=== PATIENT | female | born 1980 | race Caucasian/White ===

== ENCOUNTER 2017-06-15 19:37 | Emergency (ER) | payer BC, OTHER ==
[2017-06-15 20:46] LABS: BASO # 0.1 10^3/uL (0.0-0.2); BASO % 0.9 % (0.0-1.0); EOS # 0.5 10^3/uL (0.0-0.50); HEMATOCRIT 45.4 % (36.0-47.0); HEMOGLOBIN 15.4 g/dl (12.0-16.0); IMMATURE GRANULOCYTE % 0.2 % (0-0); LYMPH # 1.5 10^3/uL (1.5-4.5); LYMPH % 26.5 % (24.0-44.0); MEAN CORPUSCULAR HEMOGLOBIN 30.9 pg (27.0-33.0); MEAN CORPUSCULAR HGB CONC 33.9 g/dl (32.0-36.5); MEAN CORPUSCULAR VOLUME 91.2 fl (80.0-96.0); MONO # 0.5 10^3/uL (0.0-0.8); MONO % 8.8 % (0.0-5.0); NEUTROPHILS # 3.2 10^3/uL (1.8-7.7); NEUTROPHILS % 55.6 % (36.0-66.0); PLATELET COUNT, AUTOMATED 307 10^3/uL (150-450); RED BLOOD COUNT 4.98 10^6/uL (4.00-5.40); RED CELL DISTRIBUTION WIDTH 12.1 % (11.5-14.5); WHITE BLOOD COUNT 5.8 10^3/uL (4.0-10.0)
[2017-06-15 20:49] LABS: KETONE, URINE AUTO RFX NEGATIVE (NEGATIVE); MUCUS, URINE RFX SMALL (NEGATIVE); NITRITE, URINE AUTO RFX NEGATIVE (NEGATIVE); RBC, URINE AUTO RFX 6 /HPF (0-3); SPECIFIC GRAVITY UR AUTO RFX 1.027 (1.002-1.035); SQUAM EPITHELIAL CELL UR AURFX 2 /HPF (0-6)
[2017-06-15 20:52] LABS: LEUKOCYTE ESTERASE UR AUTO RFX 2+ (NEGATIVE); WBC, URINE AUTO RFX 41 /HPF (0-3)
[2017-06-15 21:09] LABS: ANION GAP 4 MEQ/L (8-16); BLOOD UREA NITROGEN 14 MG/DL (7-18); CALCIUM LEVEL 8.8 MG/DL (8.5-10.1); CARBON DIOXIDE LEVEL 30 MEQ/L (21-32); CHLORIDE LEVEL 106 MEQ/L (98-107); CREATININE FOR GFR 0.74 MG/DL (0.55-1.30); GLOMERULAR FILTRATION RATE > 60.0 (>60); GLUCOSE, FASTING 89 MG/DL (70-100); POTASSIUM SERUM 3.9 MEQ/L (3.5-5.1); SODIUM LEVEL 140 MEQ/L (136-145)
[2017-06-15] MEDS: CIPROFLOXACIN 500 MG TAB PO (21:33)
[2017-06-15] MEDS: metroNIDAZOLE (FLAGYL) 500 MG TAB PO (21:33)
[2017-06-15 23:07] LABS: CHLAMYDIA DNA AMPLIFICATION NEGATIVE (NEGATIVE); GC DNA AMPLIFICATION NEGATIVE (NEGATIVE)
== END 2017-06-15 21:41 | disposition home or self-care (01) ==
LOC: M ED 19:37
DX: N30.91 Cystitis, unspecified with hematuria (principal); N76.0 Acute vaginitis; Z88.0 Allergy status to penicillin; Z87.891 Personal history of nicotine dependence
CPT/HCPCS: 80048

== ENCOUNTER 2017-10-30 12:42 | Emergency (ER) | payer BC ==
[2017-10-30] MEDS: IPRATROPIUM 0.5MG/ALBUTEROL 2.5MG INH SOL UD 3ML (DUONEB)(J7620) NEB ×6 (13:58→16:10)
[2017-10-30] MEDS: methylPREDNISolone INJ 125 MG/2 ML VIAL (J2930) IV (14:09)
[2017-10-30 14:19] LABS: BASO # 0.1 10^3/uL (0.0-0.2); EOS # 0.7 10^3/uL (0.0-0.50); EOS % 15.1 % (0.0-3.0); HEMATOCRIT 43.6 % (36.0-47.0); HEMOGLOBIN 15.1 g/dl (12.0-15.5); IMMATURE GRANULOCYTE % 0.2 % (0-3.0); LYMPH # 1.3 10^3/uL (1.5-4.5); LYMPH % 27.3 % (24.0-44.0); MEAN CORPUSCULAR HEMOGLOBIN 30.4 pg (27.0-33.0); MEAN CORPUSCULAR HGB CONC 34.6 g/dl (32.0-36.5); MEAN CORPUSCULAR VOLUME 87.7 fl (80.0-96.0); MONO # 0.5 10^3/uL (0.0-0.8); MONO % 9.2 % (0.0-5.0); NEUTROPHILS # 2.3 10^3/uL (1.8-7.7); NEUTROPHILS % 47.2 % (36.0-66.0); PLATELET COUNT, AUTOMATED 276 10^3/uL (150-450); RED BLOOD COUNT 4.97 10^6/uL (4.00-5.40); RED CELL DISTRIBUTION WIDTH 12.3 % (11.5-14.5); WHITE BLOOD COUNT 4.9 10^3/uL (4.0-10.0)
[2017-10-30 14:59] LABS: ANION GAP 9 MEQ/L (8-16); BLOOD UREA NITROGEN 11 MG/DL (7-18); CALCIUM LEVEL 8.4 MG/DL (8.5-10.1); CARBON DIOXIDE LEVEL 24 MEQ/L (21-32); CHLORIDE LEVEL 108 MEQ/L (98-107); CREATININE FOR GFR 0.71 MG/DL (0.55-1.30); GLOMERULAR FILTRATION RATE > 60.0 (>60); GLUCOSE, FASTING 83 MG/DL (70-100); POTASSIUM SERUM 4.2 MEQ/L (3.5-5.1); SODIUM LEVEL 141 MEQ/L (136-145)
== END 2017-10-30 17:35 | disposition home or self-care (01) ==
LOC: M ED 12:42
DX: J45.901 Unspecified asthma with (acute) exacerbation (principal); Z87.891 Personal history of nicotine dependence; Z88.0 Allergy status to penicillin
CPT/HCPCS: J2930

== ENCOUNTER 2018-04-17 23:38 | Inpatient (IN) | payer BC ==
[~2018-04-17] VITALS: Ht 175.3 cm; Wt 73.0 kg
[~2018-04-17 23:38] MED LIST: ALLE180T33 PO; CIPR-249 PO; FLAG500T PO; PRED20TA PO; VENTAER INH
[2018-04-17] MEDS ORDERED: IBUP1TAB6 PO (23:46)
[2018-04-17] MEDS ORDERED: MUCI600T31 PO (23:46)
[2018-04-18] MEDS ORDERED: dexameTHASONE 20 MG/5 ML VIAL (J1100) IV ONE
[2018-04-18] MEDS ORDERED: MAG SULF 1GM/100ML (MAG RUN) 1 GM in APPROPRIATE DILUENT 1 EA IV ONE ×3 (02:45→04:45)
[2018-04-18] MEDS ORDERED: ALBUTEROL SULFATE 2.5 MG/0.5 ML INH NEB SOLN NEB ONE ×2 (05:00)
[2018-04-18] MEDS ORDERED: IPRATROPIUM 0.02% SOLN 0.5MG/2.5 ML NEB INH ONE (05:00)
[2018-04-18 05:14] LABS: BASO # 0.1 10^3/uL (0.0-0.2); BASO % 0.5 % (0.0-1.0); EOS # 0.7 10^3/uL (0.0-0.50); HEMATOCRIT 46.7 % (36.0-47.0); HEMOGLOBIN 15.7 g/dl (12.0-15.5); LYMPH # 1.5 10^3/uL (1.5-4.5); LYMPH % 13.7 % (24.0-44.0); MEAN CORPUSCULAR HEMOGLOBIN 30.7 pg (27.0-33.0); MEAN CORPUSCULAR HGB CONC 33.6 g/dl (32.0-36.5); MEAN CORPUSCULAR VOLUME 91.2 fl (80.0-96.0); MONO # 0.7 10^3/uL (0.0-0.8); MONO % 6.3 % (0.0-5.0); NEUTROPHILS # 8.1 10^3/uL (1.8-7.7); NEUTROPHILS % 73.3 % (36.0-66.0); PLATELET COUNT, AUTOMATED 356 10^3/uL (150-450); RED BLOOD COUNT 5.12 10^6/uL (4.00-5.40); WHITE BLOOD COUNT 11.1 10^3/uL (4.0-10.0)
[2018-04-18 05:21] LABS: BLOOD UREA NITROGEN 10 MG/DL (7-18); CALCIUM LEVEL 9.1 MG/DL (8.5-10.1); CARBON DIOXIDE LEVEL 25 MEQ/L (21-32); CHLORIDE LEVEL 106 MEQ/L (98-107); CREATININE FOR GFR 0.73 MG/DL (0.55-1.30); GLOMERULAR FILTRATION RATE > 60.0 (>60); GLUCOSE, FASTING 107 MG/DL (70-100); POTASSIUM SERUM 4.3 MEQ/L (3.5-5.1); SODIUM LEVEL 140 MEQ/L (136-145)
[2018-04-18 05:22] LABS: ABG BASE EXCESS -0.7 (-2.0-2.0); ABG HCO3 22.6 MEQ/L (22.0-26.0); ABG PARTIAL PRESSURE CO2 33.6 mmHg (35.0-45.0); ABG PARTIAL PRESSURE O2 75.8 mmHg (75.0-100.0); ABG STANDARD HCO3 23.9 MEQ/L (22.0-26.0); ABG TOTAL CO2 23.6 MEQ/L (22.0-29.0); ABG pH (ARTERIAL) 7.445 UNITS (7.350-7.450)
[2018-04-18] MEDS ORDERED: ALLE180T33 PO (05:22)
[2018-04-18] MEDS ORDERED: MUCI600T31 PO (05:22)
[2018-04-18] MEDS ORDERED: IBUPOTC PO (05:22)
[2018-04-18] MEDS ORDERED: ISOVUE-370 76% 100ML VIAL (Q9967) As Ordered ONE (05:29)
[2018-04-18 06:00] VITALS: BP 115/81
--- NOTE | 2018-04-18 06:22 | REPVR ---
EXAM: CT Angiography Chest With Intravenous Contrast EXAM DATE/TIME: 04/18/2018 5:24 AM CLINICAL HISTORY: 38 years old, female; Pain and signs and symptoms; Shortness of breath; Chest pain; Type not specified; Additional info: Dysp TECHNIQUE: Axial computed tomographic angiography images of the chest with intravenous contrast using CT angiography protocol. All CT scans at this facility use at least one of these dose optimization techniques: automated exposure control; mA and/or kV adjustment per patient size (includes targeted exams where dose is matched to clinical indication); or iterative reconstruction. Coronal and sagittal reformatted images were created and reviewed. MIP reconstructed images were created and reviewed. CONTRAST: 75 ml of iso administered intravenously. COMPARISON: CR Chest, 2 view PA, Lat 04/18/2018 12:47 AM FINDINGS: Pulmonary arteries: The pulmonary arteries are not enlarged. No filling defects are seen to indicate an acute pulmonary embolism. Aorta: There is no thoracic aortic aneurysm or evidence of dissection. Lungs: Mild bronchial wall thickening is seen diffusely. A small amount of mucus plugging is seen in the bilateral lower lobes.There is no significant consolidation. There is a peripheral 4 mm nodule in the right upper lobe (image 31 of series 401) and a 3 mm nodule right upper lobe (image 20). A few additional 2-3 mm subpleural nodules are also identified. Pleural space: There are no pleural effusions present. Heart: The heart is normal in size. Mediastinum: There is soft tissue density in the anterior superior mediastinum, consistent with residual thymic tissue. Upper abdomen: The visualized upper abdomen structures are unremarkable. Lymph nodes: No lymphadenopathy is seen. Bones/joints: Unremarkable. No acute fracture. Soft tissues: Unremarkable. IMPRESSION: 1. No evidence of acute pulmonary embolism. 2. Mild diffuse bronchial wall thickening and a few sites of mucus plugging, consistent with bronchitis which may be acute or chronic. 3. Small nonspecific peripheral nodules measuring up to 4 mm. For low risk patients, no routine follow-up is needed. For high risk patients, optional CT at 12 months is recommended. Electronically signed by: Alysha Walton On 04/18/2018 06:22:20 AM
[2018-04-18] MEDS ORDERED: ACETAMINOPHEN TAB 650MG DOSE (2X325MG) PO PRN (06:30)
[2018-04-18] MEDS ORDERED: IPRATROPIUM 0.5MG/ALBUTEROL 2.5MG INH SOL UD 3ML (DUONEB)(J7620) NEB PRN (06:30)
[2018-04-18] MEDS ORDERED: PRED20TA PO (06:33)
--- NOTE | 2018-04-18 06:33 | HPEPDOC ---
General Date of Admission Chief Complaint The patient is a 38-year-old female admitted with a reason for visit of SOB. Source: Patient History of Present Illness 38-year-old female recently diagnosed with asthma. Patient has no significant past history. Today she states that she became short of breath may have been triggered by the cold. She uses a Ventolin inhaler and Mucinex. She was a smoker of 6 years one pack per week. Occasional swelling in her legs. She denies fevers, chills, nausea, vomiting, diarrhea or constipation. In the ED she was given 20 mg of Decadron 3 g of magnesium up-year-old treatments ABG was done and she was found to have an AA gradient CT angiogram of the chest was done. Official read pending, but I did not see any obstruction and the vessels Home Medications Scheduled Guaifenesin (Mucinex) 600 Mg Tab, 600 MG PO DAILY, (Reported) Scheduled PRN Albuterol Sulfate (Ventolin Hfa) 108 Mcg/Act Aer, 2 PUFFS INH QID PRN for SHORTNESS OF BREATH, (Reported) Fexofenadine Hydrochloride (Rosa Allergy) 180 Mg Tab, 180 MG PO DAILY PRN for ALLERGY SYMPTOMS, (Reported) Ibuprofen (Ibuprofen) 200 Mg Tab, 600 MG PO Q6H PRN for PAIN, (Reported) Allergies Coded Allergies: Penicillins (Verified Allergy, Unknown, 06/15/17) Social History * Smoker: former Smoker Review of Systems Constitutional: Denies: Chills, Fever, Night Sweats Eyes: Denies: Pain, Vision change ENT: Denies: Head Aches, Ear Pain, Dysphagia Skin: Denies: Rash, Lesions, Breakdown Pulmonary: Reports: Dyspnea; Denies: Cough, Pleuritic Chest Pain Cardiovascular: Denies: Chest Pain, Palpitations, Orthopnea, Paroxysmal Noc. Dyspnea, Lt Headedness Gastrointestinal: Denies: Nausea, Vomiting, Abdominal Pain, Diarrhea Genitourinary: Denies: Dysuria, Frequency, Incontinence, Retention Hematologic: Denies: Bruising, Bleeding Excessively Musculoskeletal: Denies: Neck Pain, Back Pain, Joint Pain, Muscle Pain, Spasms Neurological: Denies: Weakness, Numbness, Change in speech, Confusion Psych: Reports: Mood Normal; Denies: Depression, Memory Issues Physical Examination General Exam: Positive: Alert, Cooperative, No Acute Distress Eye Exam: Positive: PERRLA, Conjunctiva & lids normal, EOMI; Negative: Sclera icteric ENT Exam: Positive: Atraumatic, Mucous membr. moist/pink, Pharynx Normal Neck Exam: Positive: Supple; Negative: JVD, thyromegaly Chest Exam: Positive: Normal air movement, Rales, Rhonchi, Wheezing Heart Exam: Positive: Tachycardic, Regular Rhythm, Normal S1, Normal S2; Negative: Murmurs, Rubs Telemetry: Positive: No significant arrhythmia Abdomen Exam: Positive: Normal bowel sounds, Soft; Negative: Tenderness, Hepatospenomegaly Extremity Exam: Positive: Normal pulses; Negative: Clubbing, Cyanosis, Edema Skin Exam: Positive: Nl turgor and temperature; Negative: Breakdown, Lesion Neuro Exam: Positive: Normal Gait, Normal Speech, Cranial Nerves 3-12 NL, Reflexes 2+ Psych Exam: Positive: Mental status NL, Mood NL, Oriented x 3 Vital Signs Vital Signs Date Time Temp Pulse Resp B/P (MAP) Pulse Ox O2 Delivery O2 Flow Rate FiO2 04/18/18 03:08 100 91 04/18/18 03:00 115/69 (84) 04/18/18 02:53 18 04/18/18 00:25 Room Air Laboratory Data Labs 24H Laboratory Tests 2 04/17/18 23:52: Immature Granulocyte % (Auto) 0.2, White Blood Count 11.1H, Red Blood Count 5.12, Hemoglobin 15.7H, Hematocrit 46.7, Mean Corpuscular Volume 91.2, Mean Corpuscular Hemoglobin 30.7, Mean Corpuscular Hemoglobin Concent 33.6, Red Cell Distribution Width 12.5, Platelet Count 356, Neutrophils (%) (Auto) 73.3H, Lymphocytes (%) (Auto) 13.7L, Monocytes (%) (Auto) 6.3H, Eosinophils (%) (Auto) 6.0H, Basophils (%) (Auto) 0.5, Neutrophils # (Auto) 8.1H, Lymphocytes # (Auto) 1.5, Monocytes # (Auto) 0.7, Eosinophils # (Auto) 0.7H, Basophils # (Auto) 0.1, Nucleated Red Blood Cells % (auto) 0.0, Anion Gap 9, Glomerular Filtration Rate > 60.0, Blood Urea Nitrogen 10, Creatinine 0.73, Sodium Level 140, Potassium Level 4.3, Chloride Level 106, Carbon Dioxide Level 25, Calcium Level 9.1 04/18/18 05:09: Blood Gas Bicarbonate Standard 23.9, Arterial Blood pH 7.445, Arterial Blood Partial Pressure CO2 33.6L, Arterial Blood Partial Pressure O2 75.8, Arterial Blood Total CO2 23.6, Arterial Blood HCO3 22.6, Arterial Blood Base Excess -0.7, Arterial Blood Oxygen Saturation 96.0 CBC/BMP Laboratory Tests 04/17/18 23:52 Red Blood Count 5.12, Mean Corpuscular Volume 91.2, Mean Corpuscular Hemoglobin 30.7, Mean Corpuscular Hemoglobin Concent 33.6, Red Cell Distribution Width 12.5, Neutrophils (%) (Auto) 73.3 H, Lymphocytes (%) (Auto) 13.7 L, Monocytes (%) (Auto) 6.3 H, Eosinophils (%) (Auto) 6.0 H, Basophils (%) (Auto) 0.5, Neutr ophils # (Auto) 8.1 H, Lymphocytes # (Auto) 1.5, Monocytes # (Auto) 0.7, Eosinophils # (Auto) 0.7 H, Basophils # (Auto) 0.1, Calcium Level 9.1 Assessment/Plan 38-year-old female recently diagnosed with asthma. Admitted for hypoxic respiratory failure secondary to bronchoconstriction. Chest x-ray shows hyperinflation, likely postobstructive secondary to long-standing asthma. Patient is afebrile, mild leukocytosis of 11, hemoglobin elevated at 15.7 consistent with hypoxia. Patient continues to have wheezing on exam and tachycardia. Duo nebs every 6 hours and as needed Solu-Medrol 80 mg every 8 hours Budesonide twice a day Follow-up official read of CT angiogram We'll order respiratory panel DVT prophylaxis with Lovenox Plan / VTE VTE Prophylaxis Ordered?: Yes JORJE VANN MD Apr 18, 2018 06:32
--- NOTE | 2018-04-18 07:00 | IPNPDOC ---
Text Note Date of Service The patient was seen on 04/18/18. NOTE Patient signed out AGAINST MEDICAL ADVICE During the interview, the patient stated that she had dogs at home that she had to care for. I explained the risks and benefits for her admission and she stated she would make some calls to some family members to take care of them and agreed with admission. Shortly after the patient was seen in the ED, she made the decision to leave the hospital AGAINST MEDICAL ADVICE. VS,Ese, I+O VS, [place], I+O Laboratory Tests 04/17/18 23:52 Red Blood Count 5.12, Mean Corpuscular Volume 91.2, Mean Corpuscular Hemoglobin 30.7, Mean Corpuscular Hemoglobin Concent 33.6, Red Cell Distribution Width 12.5, Neutrophils (%) (Auto) 73.3 H, Lymphocytes (%) (Auto) 13.7 L, Monocytes (%) (Auto) 6.3 H, Eosinophils (%) (Auto) 6.0 H, Basophils (%) (Auto) 0.5, Neutrophils # (Auto) 8.1 H, Lymphocytes # (Auto) 1.5, Monocytes # (Auto) 0.7, Eosinophils # (Auto) 0.7 H, Basophils # (Auto) 0.1, Calcium Level 9.1 Vital Signs Date Time Temp Pulse Resp B/P (MAP) Pulse Ox O2 Delivery O2 Flow Rate FiO2 04/18/18 06:08 118 18 98 04/18/18 06:00 115/81 (92) 04/18/18 00:25 Room Air JORJE VANN MD Apr 18, 2018 07:00
[2018-04-18] MEDS ORDERED: IPRATROPIUM 0.5MG/ALBUTEROL 2.5MG INH SOL UD 3ML (DUONEB)(J7620) NEB SCH (08:00)
[2018-04-18] MEDS ORDERED: BUDESONIDE 0.25 MG/2 ML INHALATION SUSPENSION INH SCH (08:00)
[2018-04-18] MEDS ORDERED: methylPREDNISolone INJ 40 MG/1 ML VIAL (J2920) IV SCH (08:00)
[2018-04-18] MEDS ORDERED: ENOXAPARIN 40 MG/0.4 ML SYRINGE (J1650) SC SCH (09:00)
--- NOTE | 2018-04-18 09:08 | REP ---
CHEST, TWO VIEWS: COMPARISON: 10/30/2017. There is no evidence of acute infiltrate. No pleural effusion is seen. The heart is normal in size. The mediastinal silhouette is unremarkable. The visualized osseous structures are intact. IMPRESSION: No acute pulmonary disease. Electronically Signed by Alex Smith MD 04/18/2018 03:34 P
--- NOTE | 2018-04-18 18:17 | ECGEPIP ---
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
== END 2018-04-18 06:57 | disposition left against medical advice (07) | DRG 133 ==
LOC: M ED 23:38 → M ED INP 04-18 06:23 → UNDOADMIN 04-18 06:25 → M ED 04-18 06:57
PROVIDERS: ADMIT Urology; ATTEND Internal Medicine Nephrology
DX: J96.01 Acute respiratory failure with hypoxia (principal); J45.909 Unspecified asthma, uncomplicated; Z88.0 Allergy status to penicillin; Z79.899 Other long term (current) drug therapy; Z87.891 Personal history of nicotine dependence